=== PATIENT | female | born 1940 | race Two or more races ===

== ENCOUNTER 2023-12-02 22:42 | Emergency (ER) | payer OTHER ==
[~2023-12-02] VITALS: Ht 160 cm; Wt 69.9 kg
[2023-12-02] MEDS ORDERED: CARVEDILOL3.125 MG (23:19)
[2023-12-02] MEDS ORDERED: PLAVIX75 MG PO (23:19)
[2023-12-02] MEDS ORDERED: GLIPIZIDE XL5 MG PO (23:19)
[2023-12-02] MEDS ORDERED: LIPITOR20 MG PO (23:19)
[2023-12-03] MEDS ORDERED: RINGERS SOLUTION,LACTATED 1,000 ML IV STA (01:46)
[2023-12-03] MEDS ORDERED: MEPERIDINE HCL/PF 25 MG/ML VIAL IM STA (01:47)
[2023-12-03] MEDS ORDERED: PROMETHAZINE HCL 25 MG/ML AMPUL IM STA (01:47)
[2023-12-03] MEDS ORDERED: HYOSCYAMINE SULFATE 0.125 MG TAB.SUBL SL ONE (02:00)
[2023-12-03 02:43] LABS: HEMATOCRIT 42.7 % (36.0-45.00); MEAN CELL VOLUME 102.6 fL (80.00-100.00); MEAN CORPUSCULAR HGB CONC 35.1 g/dl (32.0-36.0); PLATELET COUNT 174 K/uL (150-450); RED BLOOD COUNT 4.17 M/uL (4.00-6.00); RED CELL DISTRIBUTION WIDTH 12.4 % (11.5-14.5)
[2023-12-03 02:52] LABS: INR 1.08; PARTIAL THROMBOPLASTIN TIME 29.7 SECONDS (22.0-34.0); PROTHROMBIN TIME 11.3 SECONDS (9.0-11.5)
[2023-12-03 02:56] LABS: ALBUMIN 3.7 gm/dL (3.4-5.0); BILIRUBIN TOTAL 0.82 mg/dL (0.3-1.2); CALCIUM 9.4 mg/dL (8.5-10.1); CREATININE SERUM 0.6 mg/dL (0.55-1.02); GFR 95.24; GLOBULINA 4.8 G/DL (2.4-3.5); POTASSIUM 4.03 mEq/L (3.5-5.1); TOTAL PROTEIN 8.5 gm/dL (6.4-8.2)
[2023-12-03 05:32] LABS: URINE APPEARANCE Clear; URINE BILIRRUBIN Negative (NEGATIVE); URINE BLOOD Negative; URINE COLOR Yellow; URINE LEUKOCYTE Negative; URINE NITRATE Negative; URINE PROTEIN 30 (NEGATIVE); URINE UROBILINOGEN 0.2 E.U./dl
[2023-12-03 05:33] LABS: URINE BACTERIA 27.6 uL (0.0-1933); URINE EPITHELIAL CELLS 6.7 uL (0.0-38.8); URINE WBC 12.8 uL (0.0-23.2)
[2023-12-03 05:48] LABS: URINE GLUCOSE >=1000 MG/DL (NEGATIVE)
[2023-12-03] MEDS ORDERED: MINERAL OIL 30 ML BLIST.PACK PO ONE (09:30)
[2023-12-03] MEDS ORDERED: LACTULOSE 20 G/30 ML BLIST.PACK PO ONE (09:30)
[2023-12-03] MEDS ORDERED: MAGNESIUM HYDROXIDE 30 ML BLIST.PACK PO ONE (09:30)
== END 2023-12-03 09:36 | disposition home or self-care (01) ==
LOC: ER 22:42
DX: K59.00 Constipation, unspecified (principal); R10.9 Unspecified abdominal pain
CPT/HCPCS: 36415; 74177; 96372; 99284; J3490 ×2; Q9965

== ENCOUNTER 2025-03-25 21:40 | Inpatient (IN) | payer OTHER ==
[~2025-03-25] VITALS: Ht 160 cm; Wt 65.8 kg
[~2025-03-25 21:40] MED LIST: CARVEDILOL3.125 MG; GLIPIZIDE XL5 MG PO; LIPITOR20 MG PO; PLAVIX75 MG PO
[2025-03-25] MEDS ORDERED: LEVOTHYROXINE25 MCG (22:49)
[2025-03-25] MEDS ORDERED: ELIQUIS2.5 MG (22:49)
[2025-03-25] MEDS ORDERED: TOUJEO SOL300 UNIT/1 (22:49)
[2025-03-25] MEDS ORDERED: NEURAPTINE30 GM (22:50)
[2025-03-25] MEDS ORDERED: NASAL MIST126 ML (22:50)
[2025-03-25] MEDS ORDERED: GLIPIZIDE XL2.5 MG (22:50)
--- NOTE | 2025-03-25 22:51 | NUR ---
PTE ALERTA Y ORIENTADA X3 EN COMPANIA DE NUERA LA MISMA VERBALIZA QUE TIENE NAUSEAS Y DOLOR DE PECHO CON DEBILIDAD Y NO CORDINA.SE LE SABRINA S/V Y SE REALIZA UN EKG Y SE UBICA.
[2025-03-26] VITALS (7 sets, daily range): BP systolic 112–160; BP diastolic 51–69; O2SAT 98–100
[2025-03-26] MEDS ORDERED: 0.9 % SODIUM CHLORIDE 1,000 ML IV STA (02:05)
[2025-03-26 03:14] LABS: BASO % 0.7 % (0.1-1.2); EOS # 0.00 (0.04-0.54); EOS % 0.0 % (0.7-7.0); LYMPH # 0.69 (1.18-3.74); LYMPH % 12.1 % (19.3-53.1); MEAN PLATELET VOLUME 10.50 fl (9.4-12.4); MONO # 0.44 (0.24-0.82); MONO % 7.7 % (4.7-12.5); NEUT # 4.54 (1.56-6.13); NEUT % 79.3 % (34.0-71.1); RED CELL DISTRIBUTION WIDTH 11.5 % (11.6-14.4)
[2025-03-26 03:51] LABS: ALT/SGPT 46.0 U/L (12-78); AST/SGOT 56.0 U/L (15-37); BILIRUBIN TOTAL 0.63 mg/dL (0.3-1.2); BUN CREA RATIO 24.0 (7.0-25.0); CREATININE SERUM 0.79 mg/dL (0.55-1.02); GFR 69.17; GLOBULINA 5.1 G/DL (2.4-3.5); GLUCOSE FASTING 158.0 mg/dL (65-100); OSMOLALITY SERUM 279.0 MOSM/KG (275-295)
--- NOTE | 2025-03-26 03:54 | NUR ---
SE ORIENTA SOBRE TRATAMIENTO MEDICO. SE CANALIZA VENA Y SE TOMNA MUESTRAS DE LAB. SE COMIENZA TRATAMIENTO DE IV FLUIDS
[2025-03-26 04:00] LABS: COVID-19 AG NEGATIVE (NEGATIVE)
[2025-03-26] MEDS ORDERED: NITROGLYCERIN 0.4 MG/HR PATCH.TD24 TD STA (04:55)
--- NOTE | 2025-03-26 07:38 | NUR ---
SE RECIBE PTE ALERTA Y ORIENTADA X3 EN CAMA BAJA Y BARANDAS ELEVADAS POR WHITE SEGURIDAD EN UNIDAD DE ICU-2 BAJO CUIDADO DE RN SALAZAR. SE OBSERVA PTE CON RESPIRANDO A "ROOM AIR" EL CUAL REFIERE TOLERAR. LAS EXZTREMIDADES SUPERIORES SE OBSERVAN LIBRES DE EDEMA Y ERITEMA CON H/L EN BRAZO DERECHO POR EL CUAL ESTA RECIBIENDO INFUSION DE 0.9% NSS @ 50ML/HR. LA MISMA SE OBSERVA CONECTADA A MONITOR CARDIACO Y OXYMETRIA DE PULSO CON VITALES ESTABLES SHLOMO WHITE CONDICION PERMITE. EL ABDOMEN SE OBSERVA RETRAIBLE AL TACTO CON PERISTALSIS PRESENTE. PTE ORINANDO ESPONTANEO. LAS EXTREMIDADES INFERIOIRES SE OBSERVAN LIBRES DE EDEMA Y ERITEMAS. PENDIENTE A QUE PTE RECIBA VISITA DE DR DARSHANA RING.
[2025-03-26 07:45] LABS: URINE APPEARANCE Clear; URINE BILIRRUBIN Negative (NEGATIVE); URINE BLOOD Trace; URINE COLOR Yellow; URINE KETONE 15 (NEGATIVE); URINE LEUKOCYTE Trace; URINE NITRATE Negative; URINE UROBILINOGEN 0.2 E.U./dl
[2025-03-26 07:46] LABS: URINE BACTERIA 359.8 uL (0.0-1933); URINE CAST 0.58 uL (0.0-1.40); URINE EPITHELIAL CELLS 94.2 uL (0.0-38.8); URINE GLUCOSE >=1000 MG/DL (NEGATIVE); URINE PROTEIN 100 (NEGATIVE); URINE RBC 9.2 uL (0.0-20.8); URINE WBC 164.1 uL (0.0-23.2)
[2025-03-26 07:55] LABS: TYPE CELLS SQUAMOUS
[2025-03-26] MEDS ORDERED: ACETAMINOPHEN WITH CODEINE 1 UDTAB TABLET PO ONE (09:15)
[2025-03-26] MEDS ORDERED: LEVALBUTEROL HCL 0.63 MG/3 ML SOLUTION IH SCH (13:08)
[2025-03-26] MEDS ORDERED: LEVALBUTEROL HCL 0.63 MG/3 ML SOLUTION IH STA (13:08)
--- NOTE | 2025-03-26 15:00 | NUR ---
3pm Al momento femina se encuentra en area de medicina nuclear realizandose estudio ordenado.
--- NOTE | 2025-03-26 15:40 | NUR ---
3:40PM SE RECIBE PTE DE CENTRO DE IMAGENES EN COMPANIA DE ESCOLTA. SE UBICA EN CAMA #3 SE CONECTA MONITOR CARDIACO Y OXIMETRIA DE PULSO. VENOPUNCION PATENTE NISHA DE EDEMA Y ERITEMA. EXTREMIDADES INFERIORES Y SUPERIORES NISHA DE EDEMA Y ERITEMA. ABD DEPRESIBLE, BLANDO Y SIN DOLOR AL TACTO. PTE ORINANDO ESPONTANEO. PTE PENDIENTE A RE-EVAL.
[2025-03-26] MEDS ORDERED: ATORVASTATIN CALCIUM 40 MG TABLET PO SCH (17:38)
[2025-03-26] MEDS ORDERED: ENOXAPARIN SODIUM 60 MG/0.6 ML SYRINGE SUBCUTANEO SCH (17:38)
[2025-03-26] MEDS ORDERED: ASPIRIN 81 MG TAB.CHEW PO SCH (17:39)
[2025-03-26] MEDS ORDERED: IPRATROPIUM BROMIDE 0.5 MG/2.5 ML AMPUL.NEB IH SCH (17:41)
[2025-03-26] MEDS ORDERED: METOPROLOL SUCCINATE 25 MG TAB.SR.24H PO SCH (17:43)
[2025-03-26] MEDS ORDERED: NITROGLYCERIN IN 5 % DEXTROSE 250 ML IV SCH (17:45)
[2025-03-26] MEDS ORDERED: ACETAMINOPHEN 500 MG GEL..CAP PO PRN (17:45)
[2025-03-26] MEDS ORDERED: INSULIN LISPRO 1,000 UNIT/10 ML UNITS SUBCUTANEO PRN (18:15)
[2025-03-26] MEDS ORDERED: DEXTROSE 50 % IN WATER 0.5 G/ML VIAL IV PRN (18:15)
[2025-03-26 18:52] LABS: ABG PH 7.435 (7.35-7.45); ABG PO2 66.4 mmHg (80-100); BICARBONATE 24.0 mmol/l (23-25); o2 21 %
[2025-03-26 19:06] LABS: D DIMER 0.74 MG/L
[2025-03-26 19:08] LABS: INR 1.14
[2025-03-26] MEDS ORDERED: CARVEDILOL 3.125 MG TABLET PO SCH (21:00)
[2025-03-26 22:04] LABS: URINE APPEARANCE Clear; URINE BILIRRUBIN Negative (NEGATIVE); URINE BLOOD Trace; URINE COLOR Yellow; URINE KETONE 15 (NEGATIVE); URINE LEUKOCYTE Negative; URINE NITRATE Negative; URINE UROBILINOGEN 0.2 E.U./dl
[2025-03-26 22:09] LABS: URINE BACTERIA 7.2 uL (0.0-1933); URINE RBC 15.3 uL (0.0-20.8); URINE WBC 2.1 uL (0.0-23.2)
[2025-03-26 22:22] LABS: URINE CAST 0.29 uL (0.0-1.40); URINE EPITHELIAL CELLS 0.9 uL (0.0-38.8); URINE GLUCOSE >=1000 MG/DL (NEGATIVE); URINE PROTEIN 100 (NEGATIVE)
[2025-03-26 23:04] LABS: URINE YEAST FEW /hpf
[2025-03-27] VITALS (17 sets, daily range): BP systolic 90–175; BP diastolic 50–72; O2SAT 96–100
[2025-03-27] MEDS ORDERED: LEVOTHYROXINE SODIUM 50 MCG TABLET PO SCH (06:00)
[2025-03-27 07:03] LABS: CHOL HDL RATIO 3.7 (0-5.0); HDL 40.0 mg/dl (40-60); LDL 78.0 mg/dl (0-130); TSH 1.62 uIU/mL (0.358-3.74); VLDL 31.0 (0-39)
[2025-03-27] MEDS ORDERED: FAMOTIDINE/PF 20 MG in 0.9 % SODIUM CHLORIDE 8 ML IV PUSH SCH (09:00)
[2025-03-28] VITALS (11 sets, daily range): BP systolic 95–148; BP diastolic 49–73; O2SAT 89–100
[2025-03-28] MEDS ORDERED: ISOSORBIDE MONONITRATE 30 MG TABLET PO SCH (09:00)
[2025-03-28] MEDS ORDERED: INSULIN GLARGINE,HUM.REC.ANLOG 1,000 UNITS/10 ML UNITS SUBCUTANEO SCH (09:00)
== END 2025-03-28 15:43 | disposition home or self-care (01) | DRG 292 ==
LOC: ER 21:40 → SEC-K 03-26 17:55 → ICU-2 03-26 17:55 → SEC-K 03-27 12:56 → SURG 03-27 18:59
PROVIDERS: General Practice; ADMIT Internal Medicine; ATTEND Internal Medicine
PROC: 4A12X4Z Monitoring of Cardiac Electrical Activity, External Approach (ICD-10-PCS; principal; 2025-03-26)
PROC: B246ZZZ Ultrasonography of Right and Left Heart (ICD-10-PCS; 2025-03-26)
PROC: B020ZZZ Computerized Tomography (CT Scan) of Brain (ICD-10-PCS; 2025-03-26)
PROC: B32TYZZ Computerized Tomography (CT Scan) of Left Pulmonary Artery using Other Contrast (ICD-10-PCS; 2025-03-26)
PROC: B32SYZZ Computerized Tomography (CT Scan) of Right Pulmonary Artery using Other Contrast (ICD-10-PCS; 2025-03-26)
PROC: 3E0F7GC Introduction of Other Therapeutic Substance into Respiratory Tract, Via Natural or Artificial Opening (ICD-10-PCS; 2025-03-26)
DX: I50.33 Acute on chronic diastolic (congestive) heart failure (principal); G45.9 Transient cerebral ischemic attack, unspecified; I25.810 Atherosclerosis of coronary artery bypass graft(s) without angina pectoris; I11.0 Hypertensive heart disease with heart failure; E11.65 Type 2 diabetes mellitus with hyperglycemia; R91.1 Solitary pulmonary nodule; R41.0 Disorientation, unspecified; E03.9 Hypothyroidism, unspecified; Z95.1 Presence of aortocoronary bypass graft